=== PATIENT | male | born 1990 | race African-American/Black ===

== ENCOUNTER 2017-04-07 09:44 | Emergency (ER) | payer BC, OTHER ==
[2017-04-07 09:48] VITALS: BP 133/72; PULSE 102; TEMP 99; BMI 32.8
--- NOTE | 2017-04-07 10:55 | PDOC ---
History of Present Illness - General Chief Complaint: Pain Stated Complaint: PAIN IN FEET Time Seen by Provider: 04/07/17 10:34 History Source: Patient Exam Limitations: No Limitations - History of Present Illness Initial Comments: 04/07/17 10:50 26 yr male with history of NIDDM presents with pain to both lower legs and feet for 4 months. Pt states he started Lyrica 2 days ago for the pain that is helping only for a few hours. Pt denies trauma no calf swelling or pain . Timing/Duration: other (few months) Severity: moderate Past History - Past Medical History Allergies/Adverse Reactions: Allergies Allergy/AdvReac Type Severity Reaction Status Date / Time No Known Allergies Allergy Verified 04/07/17 09:48 Home Medications: Ambulatory Orders Glipizide [Glipizide ER] 2 mg PO DAILY 02/04/15 Sitagliptin Phos/Metformin HCl [Janumet 50-1,000 mg Tablet] 1 tab PO BID Tramadol HCl 50 mg PO QID PRN #20 tablet MDD 200mg 04/07/17 Diabetes: Yes HTN: Yes Other medical history: peripheral neuropathy - Immunization History Immunization Up to Date: Yes - Psycho/Social/Smoking Cessation Hx Anxiety: No Suicidal Ideation: No Smoking History: Never smoked Hx Alcohol Use: No Drug/Substance Use Hx: No Substance Use Type: None Review of Systems - Review of Systems Able to Perform ROS?: Yes Is the patient limited Spanish proficient: No Constitutional: No: Symptoms Reported HEENTM: No: Symptoms Reported Respiratory: No: Symptoms reported Cardiac (ROS): No: Symptoms Reported ABD/GI: No: Symptoms Reported : No: Symptoms Reported Musculoskeletal: Yes: See HPI *Physical Exam - Vital Signs Last Vital Signs Temp Pulse Resp BP Pulse Ox 99.0 F 102 H 20 133/72 98 04/07/17 09:45 04/07/17 09:45 04/07/17 09:45 04/07/17 09:45 04/07/17 09:45 - Physical Exam General Appearance: Yes: Nourished, Appropriately Dressed HEENT: positive: EOMI, LALIT Neck: positive: Supple. negative: Tender Respiratory/Chest: positive: Lungs Clear, Normal Breath Sounds Cardiovascular: positive: Regular Rhythm, Regular Rate Gastrointestinal/Abdominal: positive: Normal Bowel Sounds, Soft Musculoskeletal: positive: Normal Inspection Extremity: positive: Normal Capillary Refill, Normal Inspection, Normal Range of Motion Integumentary: positive: Normal Color, Dry, Warm Neurologic: positive: Fully Oriented, Alert, Normal Mood/Affect, Normal Response , Motor Strength 5/5, Sensory Deficit (bilateral plantar surfaces, decreased sensation ), Finger to Nose (intact). negative: Numbness *DC/Admit/Observation/Transfer Diagnosis at time of Disposition: Peripheral neuropathy Qualifiers: Peripheral neuropathy type: polyneuropathy, other Qualified Code(s): G62.89 - Other specified polyneuropathies - Discharge Dispostion Disposition: HOME Condition at time of disposition: Good - Prescriptions Prescriptions: Tramadol HCl 50 mg PO QID PRN #20 tablet MDD 200mg PRN Reason: Pain - Referrals Referrals: Aniket Turner MD [Staff Physician] - - Patient Instructions Additional Instructions: follow with the vascular doctor Dr. Turner for follow up continue to take Lyrica as directed take Tramadol as directed for pain
== END 2017-04-07 11:49 | disposition home or self-care (01) ==
LOC: JERFT 09:44
DX: G62.89 Other specified polyneuropathies (principal); I10 Essential (primary) hypertension; E11.9 Type 2 diabetes mellitus without complications; Z79.84 Long term (current) use of oral hypoglycemic drugs
CPT/HCPCS: 99281-25